=== PATIENT | male | born 2000 | race Caucasian/White ===

== ENCOUNTER 2023-07-01 23:54 | Inpatient (IN) | payer OTHER ==
[~2023-07-01] VITALS: Ht 182.9 cm; Wt 80.2 kg
[2023-07-02] MEDS ORDERED: ACET-840 PO (00:06)
[2023-07-02 06:33] LABS: BASO % 0.2 % (0.0-1.0); EOS % 0.1 % (0.0-3.0); HEMATOCRIT 47.6 % (42.0-52.0); HEMOGLOBIN 15.9 g/dl (13.5-17.5); LYMPH # 1.5 10^3/uL (1.5-5.0); LYMPH % 9.4 % (24.0-44.0); MEAN CORPUSCULAR HEMOGLOBIN 30.8 pg (27.0-33.0); MEAN CORPUSCULAR HGB CONC 33.4 g/dl (32.0-36.5); MEAN CORPUSCULAR VOLUME 92.1 fl (80.0-96.0); MONO # 1.3 10^3/uL (0.0-0.8); MONO % 8.1 % (2.0-8.0); NEUTROPHILS # 12.8 10^3/uL (1.5-8.5); NEUTROPHILS % 81.9 % (36.0-66.0); PLATELET COUNT, AUTOMATED 273 10^3/uL (150-450); RED BLOOD COUNT 5.17 10^6/uL (4.30-6.10); WHITE BLOOD COUNT 15.6 10^3/uL (4.0-10.0)
[2023-07-02 07:03] LABS: MONO SCRN NEGATIVE (NEGATIVE)
[2023-07-02] MEDS ORDERED: dexAMETHasone 20MG/5ML VIAL IV ONE (07:15)
[2023-07-02] MEDS ORDERED: CLINDAMYCIN 900 MG in IV 1 EA IV ONE (07:15)
[2023-07-02 07:16] LABS: ERYTHROCYTE SEDIMENTATION RATE 49 mm/hr (0-15)
[2023-07-02 07:21] LABS: RSV AMPLIFICATION NEGATIVE (NEGATIVE)
[2023-07-02] MEDS ORDERED: ISOVUE-370 76% 100ML VIAL As Ordered ONE (07:53)
[2023-07-02] MEDS ORDERED: MED REC IN PROGRESS XX SCH (09:45)
[2023-07-02] MEDS ORDERED: HOME MED LIST COMPLETE! XX SCH (10:05)
[2023-07-02] MEDS: NS 1,000 ML IV SCH (11:18)
[2023-07-02] MEDS: CLINDAMYCIN 600 MG in IV 1 EA IV SCH ×2 (14:09→20:28)
[2023-07-02 14:57] VITALS: BP 136/80; TEMP 98.8; O2SAT 98
[2023-07-02] MEDS: KETOROLAC TROMETHAMINE 10 MG TAB PO PRN (18:46)
[2023-07-02] MEDS ORDERED: dexAMETHasone 20MG/5ML VIAL IV SCH (19:00)
[2023-07-02 20:16] LABS: BLOOD UREA NITROGEN 12 MG/DL (9-23); CALCIUM LEVEL 9.3 MG/DL (8.5-10.1); CARBON DIOXIDE LEVEL 25 MMOL/L (20-31); CHLORIDE LEVEL 106 MMOL/L (98-107); CREATININE FOR GFR 0.86 MG/DL (0.70-1.30); GLOMERULAR FILTRATION RATE > 60.0 (>60); GLUCOSE, FASTING 157 MG/DL (60-100); MAGNESIUM LEVEL 1.9 MG/DL (1.8-2.4); POTASSIUM SERUM 4.3 MMOL/L (3.5-5.1); SODIUM LEVEL 140 MMOL/L (136-145)
[2023-07-02 20:29] VITALS: BP 130/80; TEMP 99.3; O2SAT 96
[2023-07-03] MEDS: CLINDAMYCIN 600 MG in IV 1 EA IV SCH ×4 (01:39→19:37)
[2023-07-03] MEDS: NS 1,000 ML IV SCH ×2 (01:39→12:13)
[2023-07-03 06:00] VITALS: BP 117/58; TEMP 98.4; O2SAT 98
[2023-07-03 08:13] LABS: BASO % 0.1 % (0.0-1.0); HEMATOCRIT 44.5 % (42.0-52.0); HEMOGLOBIN 14.7 g/dl (13.5-17.5); LYMPH # 1.3 10^3/uL (1.5-5.0); MEAN CORPUSCULAR HEMOGLOBIN 30.7 pg (27.0-33.0); MEAN CORPUSCULAR VOLUME 92.9 fl (80.0-96.0); MONO # 1.1 10^3/uL (0.0-0.8); MONO % 6.8 % (2.0-8.0); NEUTROPHILS # 13.9 10^3/uL (1.5-8.5); NEUTROPHILS % 84.7 % (36.0-66.0); PLATELET COUNT, AUTOMATED 269 10^3/uL (150-450); RED BLOOD COUNT 4.79 10^6/uL (4.30-6.10); WHITE BLOOD COUNT 16.4 10^3/uL (4.0-10.0)
[2023-07-03 08:24] LABS: HEMOGLOBIN A1c 5.3 % (4.0-6.0)
[2023-07-03] MEDS ORDERED: LIDOCAINE W/EPINEPHRINE 1% 20ML VIAL SC ONE (10:00)
[2023-07-03] MEDS: KETOROLAC TROMETHAMINE 10 MG TAB PO PRN (10:53)
[2023-07-03] MEDS ORDERED: MORPHINE 2 MG/ML 1ML VIAL IV PRN (12:05)
[2023-07-03 14:00] VITALS: BP 137/85; TEMP 99; O2SAT 97
[2023-07-03 19:44] VITALS: BP 122/66; TEMP 98.6; O2SAT 97
[2023-07-03] MEDS ORDERED: IBUPROFEN 100MG 5ML ORAL SUSP UDC PO PRN (21:50)
[2023-07-03] MEDS: ACETAMINOPHEN 325MG/10.15ML UDC PO PRN (22:04)
[2023-07-04] MEDS: CLINDAMYCIN 600 MG in IV 1 EA IV SCH ×2 (01:01→08:33)
[2023-07-04 05:20] VITALS: BP 115/65; TEMP 98.6; O2SAT 97
[2023-07-04 05:45] LABS: BASO % 0.2 % (0.0-1.0); EOS % 0.2 % (0.0-3.0); HEMOGLOBIN 14.5 g/dl (13.5-17.5); LYMPH # 2.7 10^3/uL (1.5-5.0); LYMPH % 21.8 % (24.0-44.0); MEAN CORPUSCULAR HGB CONC 32.2 g/dl (32.0-36.5); MONO % 7.9 % (2.0-8.0); NEUTROPHILS # 8.5 10^3/uL (1.5-8.5); NEUTROPHILS % 69.7 % (36.0-66.0); PLATELET COUNT, AUTOMATED 260 10^3/uL (150-450); RED BLOOD COUNT 4.84 10^6/uL (4.30-6.10); WHITE BLOOD COUNT 12.2 10^3/uL (4.0-10.0)
[2023-07-04] MEDS: ACETAMINOPHEN 325MG/10.15ML UDC PO PRN (08:36)
[2023-07-04] MEDS ORDERED: ACET325S6 PO (12:32)
[2023-07-04] MEDS ORDERED: CLIN150C17 PO (12:32)
== END 2023-07-04 13:28 | disposition home or self-care (01) | DRG 402 ==
LOC: M ED 07-02 07:28 → M ED INP 07-02 10:37 → ENRESERV 07-02 14:06 → M MSPAV 07-02 14:39
PROVIDERS: ADMIT Student in an Organized Health Care Education/Training Program; ATTEND Family Medicine
PROC: 0C9P0ZZ Drainage of Tonsils, Open Approach (ICD-10-PCS; principal; 2023-07-03)
DX: J36 Peritonsillar abscess (principal); Z88.0 Allergy status to penicillin

== ENCOUNTER 2023-08-16 17:23 | Inpatient (IN) | payer OTHER ==
[~2023-08-16] VITALS: Ht 182.9 cm; Wt 80.8 kg
[~2023-08-16 17:23] MED LIST: ACET-840 PO; ACET325S6 PO; CLIN150C17 PO
[2023-08-16 20:56] LABS: BASO % 0.3 % (0.0-1.0); EOS # 0.1 10^3/uL (0.0-0.5); EOS % 0.5 % (0.0-3.0); HEMATOCRIT 46.5 % (42.0-52.0); HEMOGLOBIN 15.5 g/dl (13.5-17.5); LYMPH # 1.8 10^3/uL (1.5-5.0); LYMPH % 14.5 % (24.0-44.0); MEAN CORPUSCULAR HEMOGLOBIN 30.4 pg (27.0-33.0); MEAN CORPUSCULAR HGB CONC 33.3 g/dl (32.0-36.5); MEAN CORPUSCULAR VOLUME 91.2 fl (80.0-96.0); MONO % 7.8 % (2.0-8.0); NEUTROPHILS # 9.5 10^3/uL (1.5-8.5); NEUTROPHILS % 76.7 % (36.0-66.0); PLATELET COUNT, AUTOMATED 246 10^3/uL (150-450); WHITE BLOOD COUNT 12.3 10^3/uL (4.0-10.0)
[2023-08-16 21:15] LABS: BLOOD UREA NITROGEN 18 MG/DL (9-23); CALCIUM LEVEL 9.2 MG/DL (8.5-10.1); CARBON DIOXIDE LEVEL 29 MMOL/L (20-31); CHLORIDE LEVEL 106 MMOL/L (98-107); CREATININE FOR GFR 0.96 MG/DL (0.70-1.30); GLOMERULAR FILTRATION RATE > 60.0 (>60); GLUCOSE, FASTING 91 MG/DL (60-100); SODIUM LEVEL 140 MMOL/L (136-145)
[2023-08-16] MEDS ORDERED: ISOVUE-370 76% 100ML VIAL As Ordered ONE (22:48)
[2023-08-16] MEDS: dexAMETHasone 20MG/5ML VIAL IV ONE (23:03)
[2023-08-17] VITALS (10 sets, daily range): BP systolic 98–133; BP diastolic 48–87; TEMP 97.1–98.4; O2SAT 95–99
[2023-08-17] MEDS: CLINDAMYCIN 900 MG in IV 1 EA IV ONE (00:07)
[2023-08-17] MEDS: NS 1,000 ML IV SCH (03:10)
[2023-08-17] MEDS: KETOROLAC 30 MG/ML 1ML VIAL IV PRN (03:20)
[2023-08-17 07:50] LABS: BLOOD UREA NITROGEN 18 MG/DL (9-23); CALCIUM LEVEL 9.5 MG/DL (8.5-10.1); CARBON DIOXIDE LEVEL 25 MMOL/L (20-31); CHLORIDE LEVEL 107 MMOL/L (98-107); CREATININE FOR GFR 0.97 MG/DL (0.70-1.30); GLOMERULAR FILTRATION RATE > 60.0 (>60); GLUCOSE, FASTING 137 MG/DL (60-100); POTASSIUM SERUM 4.8 MMOL/L (3.5-5.1); SODIUM LEVEL 138 MMOL/L (136-145)
[2023-08-17] MEDS: CLINDAMYCIN 600 MG in IV 1 EA IV SCH (08:05)
[2023-08-17] MEDS ORDERED: ONDANSETRON 4MG 2ML VIAL As Ordered ONE (16:13)
[2023-08-17] MEDS ORDERED: MIDAZOLAM INJ 2MG/2ML VIAL As Ordered ONE (16:13)
[2023-08-17] MEDS ORDERED: LIDOCAINE 2% 100MG/5ML SDV (FOR ANES.) As Ordered ONE (16:13)
[2023-08-17] MEDS ORDERED: fentaNYL 100 MCG/2 ML INJECTION As Ordered ONE (16:13)
[2023-08-17] MEDS ORDERED: propofoL 200 MG/20 ML VIAL As Ordered ONE (16:13)
[2023-08-17] MEDS ORDERED: ROCURONIUM BROMIDE 50MG/5ML VIAL As Ordered ONE (16:13)
[2023-08-17] MEDS ORDERED: ACETAMINOPHEN 1000MG 100ML IV BAG As Ordered ONE (17:03)
[2023-08-17] MEDS: LIDOCAINE W/EPINEPHRINE 1% 20ML VIAL As Ordered ONE (17:30)
[2023-08-17] MEDS ORDERED: SUGAMMADEX SODIUM 500 MG/5 ML VIAL (BRIDION) As Ordered ONE (17:34)
[2023-08-17] MEDS ORDERED: KETOROLAC 60MG 2ML VIAL As Ordered ONE (17:34)
[2023-08-17] MEDS ORDERED: dexmedeTOMIDine (4MCG/ML)200MCG/50ML BTL (PRECEDEX) As Ordered ONE (17:38)
[2023-08-17] MEDS ORDERED: ONDANSETRON 4MG 2ML VIAL IV PRN (18:10)
[2023-08-17] MEDS ORDERED: METOCLOPRAMIDE INJ 10MG/2ML VIAL IV PRN (18:10)
[2023-08-17] MEDS ORDERED: fentaNYL 100 MCG/2 ML INJECTION IV PRN (18:10)
[2023-08-17] MEDS ORDERED: LR 1,000 ML IV SCH (18:10)
[2023-08-17] MEDS ORDERED: oxyCODONE 5MG TAB PO PRN (18:10)
[2023-08-17] MEDS ORDERED: HYDROMORPHONE HCL 0.5 MG/ 0.5 ML SYRINGE IV PRN (18:10)
[2023-08-18 03:54] VITALS: BP 116/55; TEMP 97.4; O2SAT 97
[2023-08-18 08:00] VITALS: BP 126/59; TEMP 97.8; O2SAT 97
[2023-08-18] MEDS ORDERED: MEDR4PAK PO (08:33)
[2023-08-18] MEDS ORDERED: ACET325C5 PO (08:33)
[2023-08-18] MEDS ORDERED: CLIN150C17 PO (08:33)
== END 2023-08-18 12:15 | disposition home or self-care (01) | DRG 402 ==
LOC: M ED 17:23 → INTOOBSV 23:44 → OBSVTOIN 23:44 → M ED INP 23:44 → M PED 08-17 02:25
PROVIDERS: ADMIT Internal Medicine; ATTEND Internal Medicine
PROC: 0C9P0ZZ Drainage of Tonsils, Open Approach (ICD-10-PCS; principal; 2023-08-18)
DX: J36 Peritonsillar abscess (principal); Z88.0 Allergy status to penicillin

== ENCOUNTER 2023-11-14 10:35 | Day surgery (SDC) | payer OTHER ==
[~2023-11-14] VITALS: Ht 182.9 cm; Wt 84.4 kg
[~2023-11-14 10:35] MED LIST changes: +ACET325C5 PO; +ACETAMINOPHEN 1000MG 100ML IV BAG As Ordered ONE; +LIDOCAINE 2% 100MG/5ML SDV (FOR ANES.) As Ordered ONE; +MEDR4PAK PO; +MIDAZOLAM INJ 2MG/2ML VIAL As Ordered ONE; +ONDANSETRON 4MG 2ML VIAL As Ordered ONE; +ROCURONIUM BROMIDE 50MG/5ML VIAL As Ordered ONE; +SUGAMMADEX SODIUM 500 MG/5 ML VIAL (BRIDION) As Ordered ONE; +fentaNYL 100 MCG/2 ML INJECTION As Ordered ONE; +propofoL 200 MG/20 ML VIAL As Ordered ONE
[2023-11-14] MEDS ORDERED: LR 1,000 ML IV SCH ×3 (11:00→14:05)
[2023-11-14] MEDS ORDERED: fentaNYL 100 MCG/2 ML INJECTION IV PRN (13:40)
[2023-11-14] MEDS ORDERED: MEPERIDINE 50 MG/ML 1ML VIAL As Ordered ONE (13:49)
[2023-11-14] MEDS ORDERED: HYDROcodone/APAP LIQUID 7.5-325MG 15ML UDC (LORTAB ELIXIR) PO PRN (14:05)
[2023-11-14] MEDS: ONDANSETRON 4MG 2ML VIAL IV PRN (14:11)
[2023-11-14] MEDS: oxyCODONE 5MG TAB PO PRN (14:12)
[2023-11-14] MEDS: HYDROMORPHONE HCL 0.5 MG/ 0.5 ML SYRINGE IV PRN (14:35)
[2023-11-14 16:02] VITALS: BP 140/79; TEMP 98; O2SAT 98
== END 2023-11-14 16:19 | disposition home or self-care (01) ==
LOC: M SDC 10:35
PROVIDERS: ATTEND Otolaryngology
DX: J35.03 Chronic tonsillitis and adenoiditis (principal); Z88.0 Allergy status to penicillin
CPT/HCPCS: 42821; 88302; J0131; J0665; J1100; J1170; J2175; J2250; J2405; J3010

== ENCOUNTER 2023-11-19 21:40 | Observation (INO) | payer OTHER ==
[~2023-11-19] VITALS: Ht 182.9 cm; Wt 79.8 kg
[~2023-11-19 21:40] MED LIST changes: -ACETAMINOPHEN 1000MG 100ML IV BAG As Ordered ONE; -LIDOCAINE 2% 100MG/5ML SDV (FOR ANES.) As Ordered ONE; -MIDAZOLAM INJ 2MG/2ML VIAL As Ordered ONE; -ONDANSETRON 4MG 2ML VIAL As Ordered ONE; -ROCURONIUM BROMIDE 50MG/5ML VIAL As Ordered ONE; -SUGAMMADEX SODIUM 500 MG/5 ML VIAL (BRIDION) As Ordered ONE; -fentaNYL 100 MCG/2 ML INJECTION As Ordered ONE; -propofoL 200 MG/20 ML VIAL As Ordered ONE
[2023-11-19 22:17] LABS: BASO % 0.3 % (0.0-1.0); EOS # 0.1 10^3/uL (0.0-0.5); EOS % 1.5 % (0.0-3.0); HEMATOCRIT 44.7 % (42.0-52.0); HEMOGLOBIN 15.6 g/dl (13.5-17.5); LYMPH # 2.3 10^3/uL (1.5-5.0); LYMPH % 29.2 % (24.0-44.0); MEAN CORPUSCULAR HEMOGLOBIN 30.6 pg (27.0-33.0); MEAN CORPUSCULAR HGB CONC 34.9 g/dl (32.0-36.5); MEAN CORPUSCULAR VOLUME 87.6 fl (80.0-96.0); MONO # 1.1 10^3/uL (0.0-0.8); MONO % 13.4 % (2.0-8.0); NEUTROPHILS # 4.3 10^3/uL (1.5-8.5); NEUTROPHILS % 55.3 % (36.0-66.0); PLATELET COUNT, AUTOMATED 328 10^3/uL (150-450); WHITE BLOOD COUNT 7.8 10^3/uL (4.0-10.0)
[2023-11-19 23:01] LABS: BLOOD UREA NITROGEN 18 MG/DL (9-23); CALCIUM LEVEL 9.8 MG/DL (8.5-10.1); CARBON DIOXIDE LEVEL 30 MMOL/L (20-31); CHLORIDE LEVEL 102 MMOL/L (98-107); GLOMERULAR FILTRATION RATE > 60.0 (>60); GLUCOSE, FASTING 108 MG/DL (60-100); POTASSIUM SERUM 4.3 MMOL/L (3.5-5.1); SODIUM LEVEL 139 MMOL/L (136-145)
[2023-11-19] MEDS ORDERED: HOME MED LIST COMPLETE! XX SCH (23:50)
[2023-11-20] VITALS (7 sets, daily range): BP systolic 122–154; BP diastolic 75–95; TEMP 96.8–98.2; O2SAT 94–100
[2023-11-20] MEDS: LIDOCAINE W/EPINEPHRINE 1% 20ML VIAL As Ordered ONE (00:06)
[2023-11-20] MEDS ORDERED: MIDAZOLAM INJ 2MG/2ML VIAL As Ordered ONE (00:38)
[2023-11-20] MEDS ORDERED: fentaNYL 100 MCG/2 ML INJECTION As Ordered ONE (00:38)
[2023-11-20] MEDS ORDERED: propofoL 200 MG/20 ML VIAL As Ordered ONE (00:38)
[2023-11-20] MEDS ORDERED: LIDOCAINE 2% 100MG/5ML SDV (FOR ANES.) As Ordered ONE (00:38)
[2023-11-20] MEDS ORDERED: ONDANSETRON 4MG 2ML VIAL As Ordered ONE (00:38)
[2023-11-20] MEDS ORDERED: ACETAMINOPHEN 1000MG 100ML IV BAG As Ordered ONE (00:38)
[2023-11-20] MEDS: fentaNYL 100 MCG/2 ML INJECTION IV PRN (01:28)
[2023-11-20] MEDS: oxyCODONE 5MG TAB PO PRN (01:45)
[2023-11-20] MEDS ORDERED: METOPROLOL 5 MG/5 ML VIAL As Ordered ONE (01:46)
[2023-11-20] MEDS: METOPROLOL 5 MG/5 ML VIAL IV PRN (01:47)
[2023-11-20] MEDS: LR 1,000 ML IV SCH ×2 (02:45→03:17)
[2023-11-20] MEDS: ONDANSETRON 4MG 2ML VIAL IV PRN (02:46)
[2023-11-20] MEDS: METOCLOPRAMIDE INJ 10MG/2ML VIAL IV PRN (02:46)
[2023-11-20] MEDS: MEPERIDINE 25 MG/ML 1ML VIAL IV PRN (02:46)
[2023-11-20] MEDS: diphenhydrAMINE 50MG/ML VIAL IV PRN (02:46)
[2023-11-20] MEDS ORDERED: ONDANSETRON 4MG 2ML VIAL IV PRN (03:05)
[2023-11-20] MEDS: HYDROcodone/APAP LIQUID 7.5-325MG 15ML UDC (LORTAB ELIXIR) PO PRN (04:18)
[2023-11-20 08:46] LABS: HEMATOCRIT 42.6 % (42.0-52.0); HEMOGLOBIN 14.6 g/dl (13.5-17.5); MEAN CORPUSCULAR HEMOGLOBIN 30.2 pg (27.0-33.0); MEAN CORPUSCULAR HGB CONC 34.3 g/dl (32.0-36.5); PLATELET COUNT, AUTOMATED 317 10^3/uL (150-450); RED BLOOD COUNT 4.84 10^6/uL (4.30-6.10); WHITE BLOOD COUNT 6.2 10^3/uL (4.0-10.0)
== END 2023-11-20 11:30 | disposition home or self-care (01) ==
LOC: M ED 21:40 → M MS5PR 23:42 → M ED INP 11-20 01:16 → M MS5PR 11-20 02:30
PROVIDERS: ADMIT Otolaryngology; ATTEND Otolaryngology
DX: J95.830 Postprocedural hemorrhage of a respiratory system organ or structure following a respiratory system procedure (principal); Z88.0 Allergy status to penicillin
CPT/HCPCS: 36415; 42960; 80048; 85025; 85027; 86850; 86900; 86901; 99284; J0131; J0665; J1100; J2250; J2405; J3010

== ENCOUNTER → 2025-03-26 | Outpatient (CLI) | payer OTHER | LOC: M CARPUL 09:05 | PROVIDERS: ATTEND Physician Assistant | DX: R06.02 Shortness of breath (principal) ==